=== PATIENT | female | born 1995 | race Caucasian/White ===

== ENCOUNTER 2023-01-03 09:32 | Outpatient (CLI) | payer OTHER, SELFPAY ==
--- NOTE | 2023-01-03 09:51 | EST_ITS ---
Patient Info Name: Ulises Hannah Age: 27 years : 1995 Gender: Female Ht: 67 in Wt: 155 lbs BSA: 1.83 m2 HR: 59 bpm BP: 125 / 82 mmHg Heart Rhythm: Sinus Rhythm Exam Date: 01/03/2023 10:01 AM Exam Location: [facility] Stress Patient Status: Outpatient Admit Date: 01/03/2023 Staff Ordering Physician: Fermin Carranza DO Attending Provider: Fermin Carranza DO Exercise Technologist: Adrienne Boyle CT Exercise Physician: Fermin Carranza DO Exam Type: CA stress test treadmill Study Info Indications R07.9 - Chest pain, unspecified A treadmill exercise stress test was performed. Summary 1. 1. Negative Fran exercise stress test for ischemic ST changes by ECG criteria. 2. 2. Good functional capacity, achieving 12 METs of workload. 3. 3. Appropriate HR response to exercise. 4. 4. Appropriate HR recovery at 1 minute post exercise. 5. 5. No imaging with stress testing. 6. 6. Patient informed of the above results. Protocol: Fran Stress ECG Details Stage: REST Duration (min): 0 min : 53 sec Speed (mph): 0.0 Grade (%): 0 HR (bpm): 59 SBP (mmHg): 125 DBP (mmHg): 82 METS: --- Stage: REST Duration (min): 8 min : 24 sec Speed (mph): 0.0 Grade (%): 0 HR (bpm): 67 SBP (mmHg): 125 DBP (mmHg): 82 METS: --- Stage: STAGE 1 Duration (min): 1 min : 0 sec Speed (mph): 1.7 Grade (%): 10 HR (bpm): 88 SBP (mmHg): 125 DBP (mmHg): 82 METS: --- Stage: STAGE 1 Duration (min): 2 min : 0 sec Speed (mph): 1.7 Grade (%): 10 HR (bpm): 91 SBP (mmHg): 125 DBP (mmHg): 82 METS: --- Stage: STAGE 1 Duration (min): 3 min : 0 sec Speed (mph): 1.7 Grade (%): 10 HR (bpm): 97 SBP (mmHg): 116 DBP (mmHg): 81 METS: --- Stage: STAGE 2 Duration (min): 1 min : 0 sec Speed (mph): 2.5 Grade (%): 12 HR (bpm): 109 SBP (mmHg): 116 DBP (mmHg): 81 METS: --- Stage: STAGE 2 Duration (min): 2 min : 0 sec Speed (mph): 2.5 Grade (%): 12 HR (bpm): 116 SBP (mmHg): 149 DBP (mmHg): 79 METS: --- Stage: STAGE 2 Duration (min): 3 min : 0 sec Speed (mph): 2.5 Grade (%): 12 HR (bpm): 126 SBP (mmHg): 149 DBP (mmHg): 79 METS: --- Stage: STAGE 3 Duration (min): 1 min : 0 sec Speed (mph): 3.4 Grade (%): 14 HR (bpm): 148 SBP (mmHg): 158 DBP (mmHg): 86 METS: --- Stage: STAGE 3 Duration (min): 2 min : 0 sec Speed (mph): 3.4 Grade (%): 14 HR (bpm): 151 SBP (mmHg): 158 DBP (mmHg): 86 METS: --- Stage: STAGE 3 Duration (min): 3 min : 0 sec Speed (mph): 3.4 Grade (%): 14 HR (bpm): 160 SBP (mmHg): 158 DBP (mmHg): 86 METS: --- Stage: STAGE 4 Duration (min): 1 min : 0 sec Speed (mph): 4.2 Grade (%): 16 HR (bpm): 175 SBP (mmHg): 184 DBP (mmHg): 90 METS: --- Stage: STAGE 4 Duration (min): 1 min : 0 sec Speed (mph): 4.2 Grade (%): 16 HR (bpm): 175 SBP (mmHg): 184 DBP (mmHg): 90 METS:
== END 2023-01-03 09:33 | disposition home or self-care (01) ==
PROVIDERS: PCP Emergency Medicine; Visit Provider Internal Medicine Cardiovascular Disease
DX: R07.9 Chest pain, unspecified (principal)
CPT/HCPCS: 93017

== ENCOUNTER 2024-12-31 02:25 | Day surgery (SDC) | payer OTHER, SELFPAY ==
[2024-12-11 12:55] VITALS: BMI 27.8
--- OUTSIDE RECORDS SUMMARY | 2024-12-31 02:29 | XMS_ITS | Continuity of Care Document ---
Author Organization [facility] Address [address] [facility] [place] [address] Phone Care Team Providers Care Cork Insulation Installer Name Role Phone Ed Cameron MD Unavailable Unavailable Allergies, Adverse Reactions, Alerts Substance Reaction Status Criticality cat dander Itching of eyeCoughWatery eye Active No Information Penicillins Hives Active No Information POTASSIUM CLAVULANATE Hives Active No Inf ormation AMOXICILLIN TRIHYDRATE Hives Active No In formation Procedures Procedure Date OFFICE/OUTPATIENT VISIT, EST PREV VISIT, EST, AGE 18-39 OFFICE/OUTPATIENT VISIT, EST PREV VISIT, EST, AGE 18-39 OFFICE/OUTPATIENT VISIT, EST OFFICE/OUTPATIENT VISIT, EST OFFICE/OUTPATIENT VISIT, EST OFFICE/OUTPATIENT VISIT, EST OFFICE/OUTPATIENT VISIT, EST OFFICE/OUTPATIENT VISIT, EST PREV VISIT, NEW, AGE 18-39 OFFICE/OUTPATIENT VISIT, NEW Advance Directives Directive Yes / No Effective Date File Name No Information Encounters Encounter Description Practice Location Reason(s) For Visit Diagnoses Date Provider Providers Copied on Encounter OFFICE/OUTPA TIENT VISIT, EST [facility], [employer] [place], [id number], tel:[phone] [facility] WBC (chief complaint) phos (chief complaint) Other disorder of phosphorus metabolismLeukocyto sis Sep- 5 Rakesh Ward. [address] [place], [place], [address] , [place]. tel:[phone] PREV VISIT, EST, AGE 18-39 [facility], [address], [place], [place], [address], [place] tel:[phone] [facility] physical (chief complaint) Encounter for general adult medical examination without abnormal findings 0 5 Rakesh Ward[address], [address], [place], [place], [address] , [place]. tel:[phone] OFFICE/OUTPA TIENT VISIT, EST [facility], [address], [place], [place], [address], [place] [phone] [facility] UTI1 (chief complaint) Acute cystitis without hematuria 4 Rakes[address], [address], [place], [place], [address] , [place]. tel:[phone] PREV VISIT, EST, AGE 18-39 [facility], [address], [place], [place], [address], [place] tel:[phone] [facility] physical (chief complaint) Encounter for general adult medical exam w abnormal findingsAbnormal weight gainLocalized swelling, mass and lump, unspecifiedGenerali zed Anxiety DisorderPalpitation s 4 Rakesh [address], [address], [place], [place], [address] , [place]. tel:[phone] OFFICE/OUTPA TIENT VISIT, EST [facility], [address], [place], [place], [address], [place] tel:[phone] [facility] anxiety1 (chief complaint) palpitatio n1 (chief complaint) Generalized Anxiety DisorderPalpitation s 3 Rakes[address], [address], [place], [place], [address] , [place]. tel:[phone] OFFICE/OUTPA TIENT VISIT, EST [facility], [address], [place], [place], [address], [place] tel:[phone] [facility] anxiety1 (chief complaint) palpitatio n1 (chief complaint) weight gain1 (chief complaint) Generalized Anxiety DisorderPalpitation sAbnormal weight gain 3 Rakes[address], [address], [place], [place], [address] , [place]. tel:[phone] OFFICE/OUTPA TIENT VISIT, [facility], [address], [place], [place], [address], [place] tel:[phone] [facility] palpitatio n1 (chief complaint) wbc (chief complaint) anxiety1 (chief complaint) weight loss1 (chief complaint) Generalized Anxiety DisorderPalpitation sLeukocytosisAbnorm al weight loss 3 Rakes[address], [address], [place], [place], [address] , [place]. tel:[phone] OFFICE/OUTPA TIENT VISIT, [facility], [address], [place], [place], [address], [place] tel:[phone] [facility] anxiety1 (chief complaint) Generalized Anxiety Disorder 3 Rakes[address], [place], [place], [address] , [place]. tel:[phone] OFFICE/OUTPA TIENT VISIT, [facility], [address], [place], [place], [address], [place] tel:[phone] [facility] sick (chief complaint) Acute bronchitis 3 Rakesh Ed[address], [place], [place], [address] , [place]. tel:[phone] PREV VISIT, NEW, AGE 18-39 [facility], [address], [place], [place], [address], [place] tel:[phone] [facility] physical (chief complaint) Encounter for general adult medical exam w abnormal findingsOtalgia, right earTension headache 3 Rakes[address], [address], [place], [place], [address] , . tel:[phone] Family History Family Member Type Diagnosis Age At Onset Father Problem CAD 50 Brother Problem Alive and well Mother Problem RA, Polycythemia vera Father Problem colon CA 50s Father Problem Diabetes mellitus Payers Payer name Insurance type Covered constitution party ID Michele avalos(phillip) Yoly ROBINS [id number] Social History Type Description Quantity Date Captured Comments Alcohol Use Details wine 0-2 drinks occasionally Sep Caffeine Use Details Unknown Tobacco Use Status Current non-smoker Smoking Status Never smoker Sex Female Vital Signs Date / Time: Height Weight BMI Pulse Rate Blood Pressure Temperature Respiratory Rate Body Surface Area Head Circumference BMI percentile Pulse Ox Inhaled Ox 11:50 AM 66.50 in 177.80 lbs 28.2 7 kg/m eter (2) 64 /min 110/68 mm[Hg] 97.9 F 16 /min Chief Complaint And Reason For Visit From encounter dated '10/09/2024 11:26'. WBC (chief complaint). Description: Pt has mildly high wbc Pt denies any fever, chill or illness phos (chief complaint). Description: Pt has mildly high phos Plan Of Treatment Date Type Action Status Referral Ordered: COLONOSCOPY AND BIOPSY ordered Referral Referred To: Fermin Carranza [address] [place] [address], [phone] Ordered: Referrals: Fermin Carranza. Evaluate and treat ordered History Of Present Illness Encounter Date Complaint History Of Prese nt Illness WBC Pt has mildly hi gh wbc Pt denies any fever, chill or illness phos Pt has mildly hi gh phos physical Pt needs annual physical pt overall feels fine Pt has mild anxiety and she is managing it well on her own. Pt states that father was diagnosed with colon CA with mets to liver within last year in his early 50s. His father's oncologist recommended all his children to be screened for colon CA. Pt denies any GI symptoms. UTI1 pt c/o acute ons et of dysuria, urinary urgency and frequency and low pelvic pressure for two days pt denies any fever, chill, flank pain. Pt denies any blood in urine. physical Pt needs annual physical pt has history of anxiety and depression Pt has been taking lexapro and buspar and doing well Pt states that her mood is much better now and she has less stress now at work and she no longer feels anxious and depressed Pt denies any suicidal or homicidal thought Pt denies any crying spells Pt wants to wean off lexapro and buspar. Pt also gained a lot of weight. Pt has not been very physically active. Pt also notices a small subcutaneous nodule left medial thigh area for several months Pt denies any size change, redness, warmth, drainage or pain. Pt has history of palpitation Pt denies any chest pain Pt has not had any palpitation for a while Pt saw cardiology and she had negative EKG and cardiac stress test anxiety1 Pt has chronic a nxiety and depression Pt takes lexapro and buspar and doing ok Pt denies any suicidal or homicidal thought. Pt denies any crying spells Pt has been having panic attacks still but in much less frequency and intensity. Pt needs FMLA form completed for intermittent leave due to above. palpitation1 Pt has history o f palliation. Pt had negative cardiac stress test by cardiology and was cleared of any cardiac event. Pt states that palpitation resolved. anxiety1 Pt has chronic a nxiety and depression Pt takes lexapro and buspar and doing very well. Pt is able to return to work. Pt still has mild anxiety Pt only took propranolol several times but overall she feels much better . palpitation1 Pt has intermitt ent chest palpitation during panic attack and anxiety episodes .Pt missed her junior with cardiology today. Pt denies any chest pain weight gain1 Pt has been gain ing weight. Pt melani any change in activity or diet palpitation1 Pt has been havi ng intermittent palpitation since last week.. Pt did have some left midsternal chest pain and pressure along with palpitation since last week Pt denies any sob Pt denies any exertional chest pain or palpitation Pt has been having severe anxiety and panic attacks since several weeks ago Pt started lexapro two days ago. Pt notices chest pain and palpitation when she has panic attacks. Pt went to er on 11/17/22 and she had negative EKG and chest x ray and also lab work Pt was told that she had panic attacks Pt has not felt any palpitation or chest pain since yesterday Pt denies any calf pain or recent travel wbc Pt has mild high WBC from lab work from ER on 11/17/22. Pt denies any fever, chill anxiety1 Pt has severe an xiety with frequent panic attacks and some depression for the past several months. Pt denies any suicidal or homicidal thought pt has been having crying spells. Pt started lexapro two days ago but has not noticed much improvement yet . Pt was given ativan from ER two days ago but she did not start it due to possibility for addiction. Pt has a lot of hyperventilation, sweaty, numbness and tingling when she has panic attacks weight loss1 Pt has been losi ng weight pt has been under a lot of stress and she has been having poor appetite Pt denies any nausea, vomiting, early satiety Pt denies any bowel change. anxiety1 Pt has chronic a nxiety with mild depression Pt has been undergoing a lot of stress lately at work and she has been having more anxiety lately. Pt states that over the weekend, she actually had panic attack x 3 ,Pt describes acute onset of hyperventilation, shaking feeling, sweaty, palpitation, etc ,which usually last 20-30 mins Pt denies any suicidal or homicidal thought. PT has been having crying spells and she feels very emotional. sick Pt c/o sinus con gestion, stuffy ear, mild productive cough for 2 days .Pt just got off abx 7 days ago for ear infection. Pt denies any fever .pt denies any sob or GI symptoms . Pt denies any chest pain. Pt notices clear phlegm. physical pt needs annual physical. Pt did some heavy lifting two weeks ago and she work up 07/22/22 with right side neck pain with some pain around right shoulder blade. Pt also has some tension headache as well ,Pt notices mild right radiculopathy which resolved now Pt states that right shoulder blade and right side neck pain resolved as well except for mild right side neck muscle tightness. Pt denies any upper extremity weakness. Pt went to urgent care on 07/27/22 and she was given flexeril and ibuprofen for muscle pain. Pt only worked one hour on 07/22/22 and she has worked until now Pt states that she has been resting at home and she notices almost complete resolution of her pain and she is ready to go back to work tomorrow Pt needs FMLA form done. Pt had right ear infection and she was treated at urgent care and she is doing ok now Pt denies any ear pain, sore throat Instructions Date Instruction Additional Infor mation No Information Assessments Type Assessment Date assessment Other disorder of phosphorus met abolism assessment Leukocytosis Mental Status Date Cognitive Assessment Orientation - Bryan ed to time, place, person, situation.
--- OUTSIDE RECORDS SUMMARY | 2024-12-31 02:29 | XMS_ITS | Referral Summary ---
Author Organization [facility] Address [address] [place] [address] Care Team Providers Care Entertainment Centre Manager Name Role Phone Aleksandra Hardin MD Primary Care Provider [phone] Allergies Active Allergy Reactions Criticality Noted Date Comments Amoxicillin Hives Medium 07/23/2022 Cat Hair Standardized Allergenic Extract Sneezing Low Penicillins Hives Medium Medications vit no.[id number] ic ( VITAMIN) 27 mg iron- 800 mcg tablet take 1 tab by mouth daily. 30 11 6 Active Additional Information Patient not taking.Reported on 07/27/2022 albuterol HFA (PROAIR HFA) 90 mcg/actuation inhaler inhale 2 puff by inhalation route every 4 - 6 hours as needed for shortness of breath. 1 Inhaler 2 6 Active Additional Information Patient not taking.Reported on 07/27/2022 ranitidine (ZANTAC) 150 mg capsule take 1 capsule by oral route daily. 30 11 6 Active Additional Information Patient not taking.Reported on 07/27/2022 norethindrone-e .estradiol-iron (LO LOESTRIN FE) 1 mg-10 mcg (24)/10 mcg (2) tablet take 1 tablet by oral route every day 1 5 1 Active Additional Information Patient not taking.Reported on 07/27/2022 albuterol HFA (PROVENTIL HFA,VENTOLIN HFA) 90 mcg/actuation inhaler 90 mcg. 0 1 Active Additional Information Patient not taking.Reported on 07/27/2022 cyclobenzaprine (FLEXERIL) 10 mg tabletIndicatio ns:Muscle spasm of right shoulder Take 1 tablet (10 mg total) by mouth 3 (three) times a day as needed for muscle spasms 45 tablet 3 Active Additional Information Patient not taking.Reported on 01/24/2024 ibuprofen (ADVIL,MOTRIN) 800 mg tabletIndicatio ns:Muscle spasm of right shoulder Take 1 tablet (800 mg total) by mouth 3 (three) times a day 90 tablet 3 Active Additional Information Patient not taking.Reported on 01/24/2024 LORazepam (ATIVAN) 0.5 mg tablet Take 1 tablet (0.5 mg total) by mouth every 8 (eight) hours as needed for anxiety (Panic attack) 9 tablet 3 Active Additional Information Patient not taking.Reported on 01/24/2024 Active Problems Problem Noted Date Diagnosed Date Asthma 05/10/2014 Overview (09/23/2016): Asthma Immunizations Immunization Administration Dates Next Due DTaP 02/05/1999, 9,12/23/1994,09/03,1993 HPV, Quadrivalent 06/05/2009,02/02/2008,12/01/19 08 Hep B, Adolescent or Pediatric 1995,1992,1993 Hib (PRP-OMP) 11/05/1998, 5,1993,07/09 IPV 02/05/1999, 4,1993,07/09 Influenza, Split 07/24/2013 MMR 02/05/1999,09/23/1994 Meningococcal Polysaccharide (Menomune) 03/22/2006 Tdap 10/18/2005 Varicella 05/27/1999 Social History Tobacco Use Types Packs/Day Years Used Date Smoking Tobacco: Never Alcohol Use Standard Drinks/Week Comments No 0 (1 standard drink = 0.6 oz pur e alcohol) Personal Safety Answer Date Recorded Have you ever been in or are you currently in a harmful physical or emotional relationship or is someone making you feel afraid or unsafe? 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 Gender Identity Not on file Sexual Orientation Not on file Last Filed Vital Signs Vital Sign Reading Time Taken Comments Blood Pressure 130/84 01/24/2024 5:06 PM CDT Pulse 86 01/24/2024 5:06 PM CDT Temperature 36.3 C (97.3 F) 01/24/2024 5:06 PM CDT Respiratory Rate 18 01/24/2024 5:06 PM CDT Oxygen Saturation 98% 01/24/2024 5:06 PM CDT Inhaled Oxygen Concentration - - Weight 79.8 kg (176 lb) 01/24/2024 5:06 PM CDT Height 170.2 cm (5' 7) 01/24/2024 5:06 PM CDT Body Mass Index 27.57 01/24/2024 5:06 PM CDT Plan of Treatment Not on file Insurance [facility] [employer] AL[employer]GIANCE [employer] Care Teams Entertainment Centre Manager Relationship Specialty Start Date End Date Aleksandra Hardin MD PCP - General 09/17/16
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
--- NOTE | 2024-12-31 08:07 | WPDANESEPPF ---
Anes - Initial Pre Proc Eval Procedure: Operation Date: 12/31/24 11:00 Proposed Procedures p Screening Colonoscopy - Terrance Guerra MD Date/Time: 12/31/24 08:07 Surgeon: Terrance Guerra MD Pre Op Diagnosis: Encounter for screening for malignant neoplasm of Patient Data Age: 29 Gender: F Height: 1.7 m Weight: 80.5 kg Allergies Allergy/AdvReac Type Severity Reaction Status Date / Time cat dander Allergy Intermediate HIVES Verified 12/31/24 09:42 amoxicillin Allergy Mild Hives Verified 12/31/24 09:42 Penicillins Allergy Mild Hives Verified 12/31/24 09:42 Home Medications ?Medication ?Instructions ?Recorded ?Confirmed ?Type No Home Medications 11/29/24 12/11/24 History Patient hx anesthesia problems: none Family hx anesthesia problems: none Results Review: All pre-operative results and documents have been reviewed as part of the pre-operative evaluation. [facility] Past Medical History Medical History Asthma Anxiety Allergies Surgical History Surgical History History of rhinoplasty broken nose Family History Family History (Updated 11/29/24 @ 10:35 by Mary Sutherland CMA) Sibling No problems noted. Father Diabetes mellitus Heart disease Acute myocardial infarction Social History Social History (Updated 11/29/24 @ 10:36 by Mary Sutherland CMA) Smoking status: Never smoker Alcohol intake: current Alcohol use details: rarely Substance use: current Substance use type: marijuana Other substance usage details: RECREATIONAL Do You Feel Safe in your Home?: Yes Lack of Transportation: No Lack of Food: Never True Current Housing: I Have Housing Concerned About Future Housing: No Difficulty Paying Gas/Electric Bills: No Difficulty Paying for Meds: No Currently Unemployed: No Education: High School Diploma/GED Difficulty w/ Childcare or Family Care: No Living arrangements: with family Additional living arrangements comments: single Occupation/Education: occupation Additional occupation/education comments: [employer] Gender identity (if verbalized by the patient): Female Sexual Orientation (if Verbalized by the Patient): Straight or Heterosexual Anes - Eval Final PreProcedure Day of Procedure 12/31/24 08:07 Patient weight: overweight Heart: regular rate and rhythm Lungs: clear to auscultation Airway: Mallampati scale class II Neurological: alert and oriented Last oral intake: >/= 8 hours ASA classification: II Emergent: no Anesthetic plan: proceed Anesthesia type and monitoring: general GIVS and standard monitoring Results Review: All pre-operative results and documents have been reviewed as part of the pre-operative evaluation. Informed Consent: The patient's anesthetic plan and its attendant risks and benefits were discussed with the patient/family/POA. Questions were solicited and answers provided to the satisfaction of the patient/family/POA.
[2024-12-31 09:43] VITALS: BP 113/72; PULSE 71; RESP 16; TEMP 36.7; O2SAT 99
[2024-12-31 09:48] LABS: BEDSIDEPREGUCG Negative (Negative)
[2024-12-31] MEDS: LACTATED RINGERS 1,000 ML 150 ML IV CONT (09:57)
--- NOTE | 2024-12-31 10:15 | P.HP_ITS ---
History of Present Illness History of Present Illness Consent: Risks, benefits, and alternatives have been discussed and questions answered. Patient agrees to proceed with procedure. Chief complaint: Encounter for screening for malignant neoplasm of Narrative: Ulises Hannah is a 29 year old female here for first colonoscopy, father had colon cancer Review of Systems Review of Systems: All systems reviewed & are unremarkable except as noted in HPI and below PMFSH Past Medical History Medical History (Updated 12/31/24 @ 10:17 by Terrance Guerra MD) Family history of colon cancer in father Asthma Anxiety Allergies Surgical History Surgical History History of rhinoplasty broken nose Family History Family History (Updated 11/29/24 @ 10:35 by Mary Sutherland CMA) Sibling No problems noted. Father Diabetes mellitus Heart disease Acute myocardial infarction Social History Social History (Updated 11/29/24 @ 10:36 by Mary Sutherland CMA) Smoking status: Never smoker Alcohol intake: current Alcohol use details: rarely Substance use: current Substance use type: marijuana Other substance usage details: RECREATIONAL Do You Feel Safe in your Home?: Yes Lack of Transportation: No Lack of Food: Never True Current Housing: I Have Housing Concerned About Future Housing: No Difficulty Paying Gas/Electric Bills: No Difficulty Paying for Meds: No Currently Unemployed: No Education: High School Diploma/GED Difficulty w/ Childcare or Family Care: No Living arrangements: with family Additional living arrangements comments: single Occupation/Education: occupation Additional occupation/education comments: [employer] Gender identity (if verbalized by the patient): Female Sexual Orientation (if Verbalized by the Patient): Straight or Heterosexual Meds Home Medications and Allergies Home Medications ?Medication ?Instructions ?Recorded ?Confirmed ?Type No Home Medications 11/29/24 12/11/24 History Allergies Allergy/AdvReac Type Severity Reaction Status Date / Time cat dander Allergy Intermediate HIVES Verified 12/31/24 09:42 amoxicillin Allergy Mild Hives Verified 12/31/24 09:42 Penicillins Allergy Mild Hives Verified 12/31/24 09:42 Vital Signs Vital Signs - 24 hr 12/31/24 09:43 Temperature 98.1 F Pulse Rate 71 Respiratory Rate 16 Blood Pressure 113/72 Pulse Oximetry 99 Oxygen Delivery Room Air Exam Const: General: comfortable and no acute distress HENMT: Face/Nose/Sinus: Normal nares present Eyes: General: appearance normal, both eyes and all related structures Neck: Neck: no JVD Resp: Auscultation: clear to auscultation bilaterally Cardio: Rate: regular rate Rhythm: regular rhythm GI: Inspection: non-distended GI Palp: Yes Soft to palpation Skin: General skin exam: normal color Neuro: Speech: normal speech Extrem: General: normal to inspection Psych: Mental Status: mental status grossly normal Assessment and Plan Assessment and plan (1) Family history of colon cancer in father: Code(s): Z80.0 - Family history of malignant neoplasm of digestive organs Status: Acute Assessment and Plan: colonoscopy
--- NOTE | 2024-12-31 10:29 | S_PTH ---
PATIENT: Ulises Hannah LOC: [facility]#:[id number] AGE/SX: 29/F ROOM: RE12/31/[address]: Terrance Guerra MD : 1995 BED: DIS: 12/31/2024 SPEC #: [id number] RECD: 12/31/24 11:52 STATUS: BRADEN REQ #: [id number] DIANE: 12/31/24 10:[address]: Terrance Guerra DEPT: [facility] Surgical RECD BY: Mary Grace Rodriguez ENTERED: 12/31/24 11:52 SP TYPE: Surgical OTHR DR: Ed Cameron MD Tissues: A - Colon Polypectomy Procedures: Hematoxylin and Eosin Stain Gross and Microscopic Level 4
[2024-12-31 10:32] VITALS: BP 81/72; PULSE 69; RESP 15; O2SAT 97
[2024-12-31 10:42] VITALS: BP 99/68; PULSE 69; RESP 16; O2SAT 97
[2024-12-31 10:52] VITALS: BP 112/69; PULSE 62; RESP 19; O2SAT 100
[2024-12-31] MEDS: DICLOFENAC SODIUM 0.1% OPHTH SOLN 2.5 ML BOTTLE 1 DROP EACH EYE (10:55)
[2024-12-31] MEDS: PROPARACAINE HCL 0.5% 15 ML OPHTH SOLN 1 DROP EACH EYE (10:55)
== END 2024-12-31 11:15 | disposition home or self-care (01) ==
PROVIDERS: Anesthesiology; PCP Emergency Medicine; Referring Provider Emergency Medicine; Visit Provider Internal Medicine Gastroenterology
PROC: 0DJD8ZZ Inspection of Lower Intestinal Tract, Via Natural or Artificial Opening Endoscopic (ICD-10-PCS; CPT 45378; principal; 2024-12-31 11:00)
DX: Z12.11 Encounter for screening for malignant neoplasm of colon (principal); D12.4 Benign neoplasm of descending colon; J45.909 Unspecified asthma, uncomplicated; F41.9 Anxiety disorder, unspecified; F12.90 Cannabis use, unspecified, uncomplicated; Z98.890 Other specified postprocedural states; Z80.0 Family history of malignant neoplasm of digestive organs; Z82.49 Family history of ischemic heart disease and other diseases of the circulatory system
CPT/HCPCS: 45385; 88305; A9270; J2704; J7120

== ENCOUNTER 2025-03-18 01:01 | Day surgery (SDC) | payer OTHER, SELFPAY ==
--- NOTE | 2025-03-06 09:52 | SUR.PREOP ---
Report to the Outpatient Waiting Room, entrance under the green pavilion located off [facility], at time _0800_ on date _03/18/25_. Planned Procedure Time: _1000_.? Time changes happen often and if your time is changed the preop area will call you the afternoon before. - You and your visitor will be asked to self-screen and do not enter if you have any COVID symptoms. Please call surgeon if you need to reschedule. - A mask is optional within the hospital at this time. Patients may have clear liquids (water, carbonated beverages, clear teas, apple juice) until 3 hours (0700) prior to surgery with a maximum of 20 ounces. - No food from midnight until time of surgery and no smoking, or chewing tobacco (or any form of nicotine). No chewing gum, candy or mints. Take only the following medications with a SIP of water on the morning of surgery: _NA_ DO NOT STOP ANY OF YOUR OTHER PRESCRIPTION MEDICATIONS PRIOR TO SURGERY EXCEPT THE FOLLOWING Hold all vitamins and supplements for 3 days per anesthesiologist. Medications to discontinue per physician _NA_ Date to take last dose_NA_ Please no make-up, nail emirati, hairspray, perfume, deodorant, or body powder the day of surgery.? No jewelry (including any body piercings) or valuables the day of surgery, leave them at home.? Please take a shower or bath the night before, or the morning of, surgery with an antibacterial soap.? Wear comfortable, loose fitting clothing. - Jewelry must be removed prior to entering the operating room.? Rings and piercings that are not removed may be cut off. - The hospital will not accept responsibility for valuables.? - Please leave all valuables, including medications, at home the day of surgery. If you are going home after surgery, a licensed racing car driver must drive you home.? - NO public transportation without another adult if you receive anesthesia. - We recommend that an adult stay with you for 24 hours following discharge. - We also recommend that you do not drive, make important decision, drink alcoholic beverages, or take any drugs that were not prescribed by your health care provider for at least 24 hours after your discharge time.. Follow any additional instructions given to you from your surgeon. Telephone instructions given to _BALDEV_and asked if any additional questions and then verbalized understanding. Patient advised to call surgeon office or pre surgery nurse liaison [phone] if any additional questions.
[2025-03-06 09:58] VITALS: BMI 27.6
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
--- NOTE | 2025-03-18 07:08 | WPDHPUPDATE1 ---
History and Physical Update Update Date/Time: 03/18/25 07:08 History and Physical has been reviewed, including an updated exam of the patient. There are NO changes in the patient's condition. Risks, benefits, and alternatives have been discussed and questions answered. Patient agrees to proceed with vaginal polyp removal/hymenectomy .
[2025-03-18 08:35] VITALS: BP 125/77; PULSE 66; RESP 16; TEMP 36.3; O2SAT 100
[2025-03-18] MEDS: ACETAMINOPHEN 500 MG TABLET 1000 MG PO (08:54)
[2025-03-18] MEDS: LACTATED RINGERS 1,000 ML 30 ML IV CONT (08:58)
[2025-03-18 09:24] LABS: BEDSIDEPREGUCG Negative (Negative)
--- NOTE | 2025-03-18 09:37 | WPDANESEPPF ---
Anes - Initial Pre Proc Eval Procedure: Operation Date: 03/18/25 10:00 Proposed Procedures p Excision of Vaginal Polyp, Hymenectomy - Johanna Hyde MD Date/Time: 03/18/25 09:37 Surgeon: Johanna Hyde MD Pre Op Diagnosis: vaginal polyps Patient Data Age: 29 Gender: F Height: 1.7 m Weight: 80.6 kg Last Vital Signs Temp 36.3 C L 03/18/25 08:35 Pulse 66 03/18/25 08:35 Resp 16 03/18/25 08:35 BP 125/77 03/18/25 08:35 Pulse Ox 100 03/18/25 08:35 O2 Del Method Room Air 03/18/25 08:35 Allergies Allergy/AdvReac Type Severity Reaction Status Date / Time cat dander Allergy Intermediate HIVES Verified 03/18/25 08:37 amoxicillin Allergy Mild Hives Verified 03/18/25 08:37 Penicillins Allergy Mild Hives Verified 03/18/25 08:37 Home Medications ?Medication ?Instructions ?Recorded ?Confirmed ?Type No Home Medications 11/29/24 03/06/25 History Laboratory Tests 03/18/25 08:35 POC Urine HCG, Qual Negative (Negative) Patient hx anesthesia problems: none Family hx anesthesia problems: none Results Review: All pre-operative results and documents have been reviewed as part of the pre-operative evaluation. [facility] Past Medical History Medical History Family history of colon cancer in father Asthma Anxiety Allergies Surgical History Surgical History History of rhinoplasty broken nose Family History Family History Sibling No problems noted. Father Diabetes mellitus Heart disease Acute myocardial infarction Social History Social History Smoking status: Never smoker Second hand tobacco smoke exposure: No Alcohol intake: current Alcohol use details: SOCIALLY Substance use: current Substance use type: marijuana Other substance usage details: SMOKES RARELY Do You Feel Safe in your Home?: Yes Lack of Transportation: No Lack of Food: Never True Current Housing: I Have Housing Concerned About Future Housing: No Difficulty Paying Gas/Electric Bills: No Difficulty Paying for Meds: No Currently Unemployed: No Education: High School Diploma/GED Difficulty w/ Childcare or Family Care: No Living arrangements: with family Additional living arrangements comments: single Occupation/Education: occupation Additional occupation/education comments: [employer] Gender identity (if verbalized by the patient): Female Sexual Orientation (if Verbalized by the Patient): Straight or Heterosexual Spiritual care concerns: No Anes - Eval Final PreProcedure Day of Procedure 03/18/25 09:37 Patient weight: overweight Heart: regular rate and rhythm Lungs: clear to auscultation Airway: Mallampati scale class II Neurological: alert and oriented Last oral intake: >/= 8 hours ASA classification: II Emergent: no Anesthetic plan: proceed Anesthesia type and monitoring: general GIVS and standard monitoring Results Review: All pre-operative results and documents have been reviewed as part of the pre-operative evaluation. Informed Consent: The patient's anesthetic plan and its attendant risks and benefits were discussed with the patient/family/POA. Questions were solicited and answers provided to the satisfaction of the patient/family/POA.
[2025-03-18] MEDS: BUPIVACAINE/EPINEPHRINE 0.5% 50 ML VIAL 10 ML INFILTRATE (10:03)
--- NOTE | 2025-03-18 10:19 | W.PM.PROC2 ---
Procedure Note - Detailed Date of Procedure 03/18/25 Pre-op Diagnosis vaginal polyp Post-op Diagnosis Same Procedure Performed Vaginal polypectomy Surgeon Johanna Hyde MD Anesthesia MAC and Local (10cc 0.5% marcaine w/ epi) Findings 2x2cm hypertrophied vaginal tissue arising from the hymen at 6o'clock noted. Good hemostasis at end of case. Description of Procedure Ulises was taken to the operating room where she was placed under sedation without complications. She was then prepped and draped in the usual sterile fashion in the dorsal lithotomy position with her legs in low Nick stirrups. A time-out was performed and no perioperative antibiotics were indicated. The hypertrophied tissue arising from the hymen at 6o'clock and surrounding vaginal tissue was anesthetized with 10cc of 0.5% Marcaine with epinephrine. An elliptical shape skin incision was made in the overlying tissue using Metzenbaum scissors. It was dissected out using tension, counter traction, and Metzenbaum scissors. The hypertrophies tissue was excised without issue. Small blood vessels were coagulated using Bovie cautery. The vaginal tissue was then reapproximated using 3-0 Vicryl in a running fashion perpendicular to the opening as to not constrict the opening. Good hemostasis was noted. All instruments were removed from the surgical field. Sponge, lap, instrument, and needle counts were correct at the end of the procedure. Patient was awoken from anesthesia and taken to recovery with plans of same-day discharge home. Estimated Blood Loss 20 IV Fluids 600 Drains No Packing No Pathology None sent Complications No immediate complications Condition Stable Disposition Same day [facility] Billing Surgery - Charge Forward: Surgery Billing
[2025-03-18 10:21] VITALS: BP 93/63; PULSE 63; RESP 16; O2SAT 95
[2025-03-18 10:30] VITALS: BP 100/63; PULSE 64; RESP 16
[2025-03-18 10:59] VITALS: BP 111/73; PULSE 54; RESP 16
== END 2025-03-18 11:03 | disposition home or self-care (01) ==
PROVIDERS: PCP Emergency Medicine; Visit Provider Obstetrics & Gynecology
PROC: (CPT 57135; principal; 2025-03-18 10:00)
DX: N84.2 Polyp of vagina (principal); J45.909 Unspecified asthma, uncomplicated; F41.9 Anxiety disorder, unspecified; F12.90 Cannabis use, unspecified, uncomplicated; Z98.890 Other specified postprocedural states; Z80.0 Family history of malignant neoplasm of digestive organs; Z82.49 Family history of ischemic heart disease and other diseases of the circulatory system
CPT/HCPCS: 57135; A9270; J2250; J2704; J3010; J7120